=== PATIENT | male | born 1935 | race Caucasian/White ===

== ENCOUNTER → 2023-12-15 12:59 | Outpatient (REF) | payer MEDICARE, OTHER, SELFPAY ==
[2023-12-15 13:38] LABS: % Basophils 0.3 % (0-2); % Eosinophils 1.7 % (0-6); % Immature Granulocytes 0.3 % (0-0.5); % Monocytes 8.7 % (1.7-9.3); Absolute Eosinophils 0.1 10^3/uL (0-0.7); Absolute Lymphocytes 1.4 10^3/uL (1.2-3.4); Absolute Monocytes 0.7 10^3/uL (0.1-0.6); Absolute Neutrophils 5.3 10^3/uL (1.4-6.5); Hematocrit 35.1 % (39.0-52.0); Hemoglobin 11.4 g/dL (13.0-18.0); Mean Corp Hgb Conc. 32.5 g/dL (33.0-37.0); Mean Corpuscular Hgb 29.8 pg (27.0-31.0); Mean Corpuscular Volume 91.6 fL (80.0-94.0); Mean Platelet Volume 11.1 fL (7.4-10.4); Nucleated Red Blood Cells % 0 % (-); Platelet Count 161 10^3/uL (130-400); Red Blood Cell Count 3.83 10^6/uL (4.70-6.10); Red Cell Dist. Width 16.3 % (11.5-14.5); White Blood Cell Count 7.5 10^3/uL (4.8-10.8)
[2023-12-15 15:01] LABS: ALT (SGPT) 15 U/L (0-50); AST (SGOT) 23 U/L (17-59); Albumin 4.3 g/dl (3.5-5.0); Alkaline Phosphatase 91 U/L (38-126); Blood Urea Nitrogen 16 mg/dl (9-20); Carbon Dioxide 26 mmol/L (22-30); Chloride 104 mmol/L (98-107); Glucose 105 mg/dl (70-99); Potassium 4.8 mmol/L (3.5-5.1); Sodium 140 mmol/L (135-145); Total Bilirubin 1.3 mg/dl (0.2-1.3); Total Protein 7.6 g/dl (6.3-8.2); eGFR > 60.00
== END ==
LOC: SDSPAT 12:59
PROVIDERS: ATTENDING PHYSICIAN Internal Medicine Cardiovascular Disease; FAMILY PHYSICIAN Internal Medicine; OTHER PHYSICIAN Internal Medicine Cardiovascular Disease
DX: Z01.818 Encounter for other preprocedural examination (principal); R06.02 Shortness of breath; I10 Essential (primary) hypertension; I25.10 Atherosclerotic heart disease of native coronary artery without angina pectoris; I48.0 Paroxysmal atrial fibrillation
CPT/HCPCS: 36415; 80053; 85025; 93005

== ENCOUNTER 2023-12-19 09:06 | Day surgery (SDC) | payer MEDICARE, OTHER, SELFPAY ==
[2023-12-15 13:13] VITALS: BMI 26.7
[2023-12-19] VITALS (11 sets, daily range): BP systolic 96–163; BP diastolic 52–100; BMI 26.7
[2023-12-19] MEDS: NSS 225 ML IV (10:03)
[2023-12-19] MEDS: LOW STRENGTH ASPIRIN 81 MG PO (10:22)
--- NOTE | 2023-12-19 11:44 | ITS.CL.CATH ---
[employer] - Catheterization
Cardiac Catheterization
Procedure Report:
CARDIAC CATHETERIZATION REPORT
Date of Procedure: 12/19/2023
Referring: Norman Artis MD
Indication: LV dysfunction, LAMBERT, known CAD
HEMODYNAMIC DATA
AO: 132/89
LV: 132/16
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
CORONARY ANGIOGRAPHY
Dominance: Right
Left Main: Normal
LAD: Long 30% proximal stenosis within a remotely placed stent. There is 30% stenosis in the LAD just distal to the stent. The remainder of the LAD proper has mild luminal irregularities. There is 70% ostial stenosis and a small D2 which
originates from within the stented segment of LAD. D3 is a medium sized vessel with 60% proximal stenosis.
Circumflex: 30% mid stenosis otherwise trivial luminal irregularities
RCA: Dominant moderately calcified vessel with multiple areas of mild luminal disease. There is 40% ostial RPDA stenosis. There is 40% distal RCA stenosis spanning the takeoff of the PDA. The RCA terminates with several small and one large
bifurcating posterolateral branch
Closure Device: None-the procedure was performed via the right radial artery. The Tobin's test was normal prior to the procedure.
Radiation (mGy): 243
DAP (cm2.Gy): 17.4
Fluoroscopy time: 1.8 minutes
CONCLUSIONS
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
2: Moderate branch CAD as described
3. Continue medical therapy directed toward LV dysfunction and prevention of CAD progression
4. Resume Eliquis 5mg bid tonight
Copy to: Norman Artis MD, Jordan Stanton MD
Sarthak Chew MD, [facility], [facility]
== END 2023-12-19 14:30 | disposition home or self-care (01) ==
LOC: CATH 09:06
PROVIDERS: ATTENDING PHYSICIAN Internal Medicine Cardiovascular Disease
DX: I25.10 Atherosclerotic heart disease of native coronary artery without angina pectoris (principal); R06.09 Other forms of dyspnea; Z95.5 Presence of coronary angioplasty implant and graft; I48.0 Paroxysmal atrial fibrillation; I10 Essential (primary) hypertension; E78.5 Hyperlipidemia, unspecified; K21.9 Gastro-esophageal reflux disease without esophagitis; Z87.891 Personal history of nicotine dependence; Z82.49 Family history of ischemic heart disease and other diseases of the circulatory system; Z79.01 Long term (current) use of anticoagulants; Z79.82 Long term (current) use of aspirin
CPT/HCPCS: 93458; C1894; Q9967